=== PATIENT | male | born 2000 | race African-American/Black ===

== ENCOUNTER 2020-05-24 18:44 | Emergency (ER) | payer SELFPAY ==
[2020-05-24 19:17] VITALS: BP 134/83; PULSE 70; TEMP 99.2; BMI 40.1
[2020-05-24 19:56] LABS: BASO % 3.4 % (0-2.0); EOS % 1.4 % (0-4.5); HEMATOCRIT 43.4 % (35.4-49); HEMOGLOBIN 14.1 GM/dl (11.7-16.9); LYMPH % 37.7 % (8-40); MCH 26.2 pg (25.7-33.7); MCHC 32.4 g/dl (32.0-35.9); MEAN CELL VOLUME 80.8 fl (80-96); MONO % 9.1 % (3.8-10.2); NEUT % 48.4 % (42.8-82.8); PLATELET COUNT 319 K/MM3 (134-434); RBC 5.37 M/mm3 (4.00-5.60); RDW 15.1 % (11.9-15.9); WHITE BLOOD COUNT 7.1 K/mm3 (4.0-10.8)
[2020-05-24 20:11] LABS: ALBUMIN 4.1 g/dl (3.4-5.0); BILIRUBIN,TOTAL 0.7 mg/dl (0.2-1); CALCIUM 8.9 mg/dl (8.5-10); CREATININE 1.2 mg/dl (0.55-1.3); POTASSIUM 3.5 mmol/L (3.5-5.1); TOT PROT 6.8 g/dl (6.4-8.2)
== END 2020-05-24 20:27 | disposition home or self-care (01) ==
LOC: FER 18:44
DX: R10.84 Generalized abdominal pain (principal)
CPT/HCPCS: 36415; 80053; 85025; 99283-25